=== PATIENT | male | born 1950 | race Caucasian/White ===

== ENCOUNTER 2022-04-25 14:35 | Outpatient (NON) | payer MEDICARE, SELFPAY | END 2022-04-25 14:36 | disposition home or self-care (01) | LOC: ANHLAB 14:36 | PROVIDERS: PCP Internal Medicine; Visit Provider Nurse Practitioner | DX: C44.719 Basal cell carcinoma of skin of left lower limb, including hip (principal) | CPT/HCPCS: 88305; 88331 ==

== ENCOUNTER 2022-12-07 15:18 | Emergency (ER) | payer OTHER, SELFPAY ==
--- NOTE | ~2022-12-07 | XR_ITS ---
XR knee RT 3V DATE: 12/07/2022 15:48 INDICATION: Fall. Anterior knee pain. TECHNIQUE: [place], anteroposterior and lateral views COMPARISON: None FINDINGS: No fracture or dislocation or joint effusion is evident. No periosteal reaction or bone amaya truction. No radiopaque intra-articular loose body or chondrocalcinosis. Joint spaces are relatively preserved. No radiopaque intra-articular loose body or chondrocalcinosis. Mild patellofemoral osteoar thritis. IMPRESSION: Mild osteoarthritis Reviewed, dictated and finalized at location A. IMPRESSION: Mild osteoarthritis
[2022-12-07 15:33] VITALS: BP 141/112; PULSE 98; RESP 16; TEMP 36.2; O2SAT 96
--- NOTE | 2022-12-07 15:45 | ED.LOWEXIN ---
HPI - Extremity Injury (Lower) General Chief Complaint: Extremity Injury, Lower Stated Complaint: Fall Injury, Right Knee Pain Source: patient and RN notes reviewed History of Present Illness HPI Narrative: 72 yo M presents to urgent care with complaints of right knee pain. Pt states yesterday, he slipped at work and landed on his right knee and right FA. Pt denies any head injury or LOC. Denies any chest pain, SOB, N/V/D, neck pain, numbness, or tingling. Related Data Home Medications Medication Instructions Recorded Confirmed apixaban 5 mg tablet 5 mg PO BID 02/17/21 01/31/22 calcium carbonate 500 mg calcium 500 mg PO TID 02/17/21 01/31/22 (1,250 mg) tablet dapagliflozin propanediol 10 mg 10 mg PO DAILY 02/17/21 01/31/22 tablet metoprolol succinate 50 mg 50 mg PO DAILY 02/17/21 01/31/22 tablet,extended release 24 hr rosuvastatin 40 mg tablet 40 mg PO .COMPLEX 02/17/21 01/31/22 spironolactone 25 mg tablet 25 mg PO DAILY 02/17/21 01/31/22 clobetasol 0.05 % topical cream 1 applic topical BID 01/31/22 01/31/22 doxycycline hyclate 100 mg tablet 100 mg PO DAILY 01/31/22 01/31/22 furosemide 40 mg tablet 40 mg PO ONCE 01/31/22 01/31/22 sacubitril 24 mg-valsartan 26 mg 1 tablet PO ONCE 01/31/22 01/31/22 tablet triamcinolone acetonide 0.1 % 1 applic topical BID 01/31/22 01/31/22 topical cream Allergies Allergy/AdvReac Type Severity Reaction Status Date / Time No Known Allergies Allergy Mild Verified 01/31/22 15:02 Review of Systems Review of Systems: CONSTITUTIONAL: Denies fever, chills, or sweats. EYES: Denies visual changes, redness, or discharge. ENT: Denies otalgia and sore throat CARDIOVASCULAR: Denies chest pain, palpitations, or edema. RESPIRATORY: Denies cough or dyspnea. GASTROINTESTINAL: Denies abdominal pain, nausea, vomiting, or diarrhea. GENITOURINARY: Denies dysuria or hematuria. SKIN: Denies rash or itching. MUSCULOSKELETAL: right knee pain NEUROLOGIC: Denies headache, numbness, or weakness. Pertinent positives per HPI. [facility] Past Medical History Medical History Atrial flutter CHF (congestive heart failure) Hyperlipidemia Surgical History Surgical History H/O hand surgery H/O knee surgery History of cardiac radiofrequency ablation Family History Family History Father Glaucoma Grandparent Glaucoma Social History Social History (Updated 01/31/22 @ 15:12 by Conchis Flores CMA) Smoking status: Never smoker Alcohol intake: current Lack of Transportation: No Lack of Food: Never True Current Housing: I Have Housing Concerned About Future Housing: No Difficulty Paying Gas/Electric Bills: No Difficulty Paying for Meds: No Currently Unemployed: No Education: Master's Degree or Higher Difficulty w/ Childcare or Family Care: No Comments At the time of my signature, I reviewed and agree with the nursing past medical, surgical, social, and family history. There is no relevant family history pertinent to the patient complaint. Exam Narrative: GENERAL: This is a well-nourished, well-developed patient, in no apparent distress. HEAD: normocephalic, atraumatic. EYES: Sclera clear/white. Vision is grossly intact. EARS: External ears normal, auditory canals clear and without drainage. Hearing grossly intact. NOSE: External nose normal with no obvious nasal discharge, nares without redness, no rhinorrhea. CARDIOVASCULAR: Regular rate and rhythm without murmurs, gallops, or rubs. RESPIRATORY: Clear to auscultation. Breath sounds equal bilaterally. No wheezes, rales, or rhonchi. GASTROINTESTINAL: Abdomen soft, non-tender, nondistended. Bowel sounds are active. No hepato-splenomegaly, or palpable masses. No guarding. SKIN: warm, intact with no suspicious lesions or rash, good texture and tu
== END 2022-12-07 18:29 | disposition home or self-care (01) ==
PROVIDERS: Emergency Provider Nurse Practitioner Family; PCP Internal Medicine
DX: M17.11 Unilateral primary osteoarthritis, right knee (principal); E78.5 Hyperlipidemia, unspecified; I11.0 Hypertensive heart disease with heart failure; I50.9 Heart failure, unspecified; I48.92 Unspecified atrial flutter
CPT/HCPCS: 73562; 99213; G0463